=== PATIENT | male | born 1995 | race Caucasian/White ===

== ENCOUNTER 2018-03-04 18:57 | Emergency (ER) | payer SELFPAY ==
[2018-03-04 20:01] VITALS: BP 141/84
--- NOTE | 2018-03-04 21:07 | ED ---
GI/ HPI - HPI Summary HPI Summary: pt presents to the ED for evaluation and treatment for syphillis. pt states he kissed someone who has presumed syphyllis many months ago. he then had sexual intercourse with someone who had sex with someone who has reportedly been diagnosed but not treated for syphyllis. this alleged person - History of Current Complaint Chief Complaint: UCSTDScreening Stated Complaint: PERSONAL Hx Obtained From: Patient Pain Intensity: 0 - Allergy/Home Medications Allergies/Adverse Reactions: Allergies Allergy/AdvReac Type Severity Reaction Status Date / Time No Known Allergies Allergy Verified 03/04/18 19:59 Home Medications: Home Medications NK [No Home Medications Reported] 03/04/18 [History Confirmed 03/04/18] PMH/Surg Hx/FS Hx/Imm Hx Previously Healthy: Yes Infectious Disease History: No Infectious Disease History: Denies: Traveled Outside the [place] in Last 30 Days - Social History Alcohol Use: Occasionally Substance Use Type: Reports: None Smoking Status (MU): Light Every Day Tobacco Smoker Length of Time of Smoking/Using Tobacco: VAPING Review of Systems Constitutional: Negative Eyes: Negative ENT: Negative Cardiovascular: Negative Respiratory: Negative Gastrointestinal: Negative Negative: burning, dysuria, discharge, frequency, flank pain, hematuria, incontinence Musculoskeletal: Negative Skin: Negative Neurological: Negative Psychological: Normal All Other Systems Reviewed And Are Negative: No Physical Exam Triage Information Reviewed: Yes Vital Signs On Initial Exam: Initial Vitals Temp Pulse Resp BP Pulse Ox 97.5 F 80 19 141/84 98 03/04/18 19:57 03/04/18 19:57 03/04/18 19:57 03/04/18 19:57 03/04/18 19:57 Vital Signs Reviewed: Yes Appearance: Positive: Well-Appearing, No Pain Distress, Well-Nourished Skin: Positive: Warm, Dry Head/Face: Positive: Normal Head/Face Inspection Eyes: Positive: Normal, EOMI, ESHA ENT: Positive: Hearing grossly normal, Pharynx normal Neck: Positive: Supple, Nontender Respiratory/Lung Sounds: Positive: Clear to Auscultation, Breath Sounds Present Cardiovascular: Positive: Normal, RRR Abdomen Description: Positive: Nontender, Soft Bowel Sounds: Positive: Present Male Genital Exam: Positive: Other - pt deferred the exam Musculoskeletal: Positive: Normal, Strength/ROM Intact Neurological: Positive: Normal, Sensory/Motor Intact, Alert, Oriented to Person Place, Time, CN Intact II-III Psychiatric: Positive: Normal AVPU Assessment: Alert Diagnostics - Vital Signs Vital Signs Temp Pulse Resp BP Pulse Ox 03/04/18 19:57 97.5 F 80 19 141/84 98 - Laboratory Lab Statement: Any lab studies that have been ordered have been reviewed, and results considered in the medical decision making process. GIGU Course/Dx - Course Course Of Treatment: pt deferred a exam. he was tested via blood for syphyllis. He does not have a pcp. He lives in [place]. I informed him that if his test comes back positive, we will notify him. I further informed him that if his partner is positive for syphyllis, the health dept will contact him as well. pt deferred getting an hiv test or tested for stds. I discussed with him my concern that he may have other communicable stds. pt was not agreeing to be tested. - Diagnoses Provider Diagnoses: Screening for STDs (sexually transmitted diseases) Discharge - Sign-Out/Discharge Documenting (check all that apply): Patient Departure All imaging exams completed and their final reports reviewed: No Studies - Discharge Plan Condition: Stable Disposition: HOME Patient Education Materials: Sexually Transmitted Diseases (ED), Condom Use (ED ), Safe Sex (ED) Referrals: No Primary Care Phys,NOPCP [Primary Care Provider] - [facility] [Provider Group] Additional Instructions: return if any new symptoms or you change your mind and want to be tested for hiv or other stds. please practice safe sex by using a condomns ALL the time without exception. establish care with a pcp. - Billing Disposition and Condition Condition: STABLE Disposition: Home
--- NOTE | 2018-03-07 09:22 | UC ---
- Progress Note Progress Note: Syphillis neg no change [email or web address] 03/07/18 Course/Dx - Diagnoses Provider Diagnoses: Screening for STDs (sexually transmitted diseases) Discharge - Sign-Out/Discharge Documenting (check all that apply): Post-Discharge Follow Up All imaging exams completed and their final reports reviewed: No Studies - Discharge Plan Condition: Stable Disposition: HOME Patient Education Materials: Sexually Transmitted Diseases (ED), Condom Use (ED ), Safe Sex (ED) Referrals: [facility] [Provider Group] No Primary Care Phys,NOPCP [Primary Care Provider] - Additional Instructions: return if any new symptoms or you change your mind and want to be tested for hiv or other stds. please practice safe sex by using a condomns ALL the time without exception. establish care with a pcp. - Billing Disposition and Condition Condition: STABLE Disposition: Home
== END 2018-03-04 21:25 | disposition home or self-care (01) ==
LOC: UCCORT 18:57
DX: Z11.3 Encounter for screening for infections with a predominantly sexual mode of transmission (principal); F17.210 Nicotine dependence, cigarettes, uncomplicated
CPT/HCPCS: 36415; 86592; 99201; G0463